=== PATIENT | female | born 1960 | race Caucasian/White ===

== ENCOUNTER 2017-08-30 17:41 | Emergency (ER) | payer OTHER ==
[2017-08-30 17:48] VITALS: BP 112/69
[2017-08-30] MEDS ORDERED: IBUPROFEN 600 MG TAB PO ONE (18:19)
--- NOTE | 2017-08-30 18:26 | EDPHY ---
H & P Time Seen by Provider: 08/30/17 17:52 HPI/ROS: HPI Right knee injury. 57-year-old female by private vehicle with her . This patient was on a small step ladder when she slipped got her right leg caught in 1 of the rungs of the stepladder and twisted it as she fell to the ground. She did not hit her head. She presents complaining of isolated right knee pain. She states the pain is worse when she tries to bear weight on it and does not think she can bear weight on the right lower extremity at this time. She denies any distal loss of sensation or sensation of weakness in her foot. No other complaints. ROS: Constitutional: No fever, no chills. No weakness. Musculoskeletal: No back pain. No neck pain. As above. Skin: No rashes. No lacerations or abrasions. Neurological: No headache. No focal weakness or altered sensation. Past medical history: She denies any related past medical history. Social history: Nonsmoker. Here with her . Denies alcohol. Physical Exam: General Appearance: Alert, no distress. This patient is responding to questions appropriately and in full sentences. This patient appears well- hydrated and well-nourished. Head: Normocephalic atraumatic. Eyes: Pupils equal and round no pallor or injection. No lid edema, erythema or injection. Right knee exam: There is a small to moderate effusion noted. She does have tenderness over the anterior medial joint line. No ecchymosis, no bony step- off or deformity noted on palpation of this area. The knee joint is stable to valgus and varus stress testing. The knee joint is stable to anterior and posterior drawer testing. The right lower extremity is neurovascularly intact. Neurological: Motor sensory function is grossly intact. Cranial nerves are normal. Skin: Warm and dry, no rashes. Musculoskeletal: Neck is supple and nontender. Extremities are symmetrical. All joints range without pain or impingement. Psychiatric: No agitation. No depression. Database: EKG: Imaging: Right knee x-ray series: Negative for fracture, subluxation, dislocation. Interpreted by me. Procedures: Emergency department course: Vital signs reviewed and are normal. Results of her x-ray were discussed with her and her . She was given 600 mg of ibuprofen for pain control. I discussed diagnosis of a sprain but the consideration for MR imaging. I will have her follow up with Orthopedics for re-evaluation early next week. An MRI can be obtained as an outpatient on her re-examination. She is in agreement with this plan. She does not feel comfortable putting weight on the knee. We have provided her with a knee immobilizer and crutches. She has been instructed on crutch use. She does feel comfortable going home with her . She understands for follow-up. Return to emergency department precautions reviewed with the 2 of them. All of their questions were answered. Patient was discharged home in good condition with her . Differential Diagnosis: The differential diagnosis on this patient includes but is not limited to right knee sprain, medial collateral ligament tear, ACL tear. Fracture, subluxation, dislocation of the right knee unlikely. This represents a partial list of diagnoses considered. These considerations are based on history, physical exam , past history, reassessment and diagnostic testing. Smoking Status: Never smoked Constitutional: Initial Vital Signs Temperature (C) 36.7 C 08/30/17 17:46 Heart Rate 84 08/30/17 17:46 Respiratory Rate 18 08/30/17 17:46 Blood Pressure 112/69 08/30/17 17:46 O2 Sat (%) 98 08/30/17 17:46 O2 Delivery Mode Room Air Allergies/Adverse Reactions: amoxicillin Allergy (Verified 08/30/17 17:45) penicillin G Allergy (Verified 08/30/17 17:45) Home Medications: Medication Instructions Recorded Lexapro 08/30/17 MDM/Departure - Depart Disposition: Home, Routine, Self-Care Clinical Impression: Right knee sprain Condition: Good Instructions: Knee Sprain (ED) Additional Instructions: Read and follow provided instructions. Follow-up with Orthopedics, Dr. Andres Moreland or 1 of his partners, early next week days for re-evaluation. Call his office on Friday morning for appointment time. An MRI can be obtained as needed based on you're re-examination at the orthopedic clinic. Ibuprofen dosin mg every 6 hours with meals for the next 3 days only. Take only as needed for pain. Return to the emergency department for worsening pain, swelling, discoloration, fever or other serious concerns. Referrals: Andres Moreland MD [Medical Doctor] - As per Instructions
== END 2017-08-30 18:43 | disposition home or self-care (01) ==
DX: S83.91XA Sprain of unspecified site of right knee, initial encounter (principal); W11.XXXA Fall on and from ladder, initial encounter
CPT/HCPCS: L1830